=== PATIENT | male | born 1980 | race Caucasian/White ===

== ENCOUNTER 2022-07-18 10:55 | Emergency (ER) | payer OTHER ==
[2022-07-18 11:11] VITALS: BP 165/92; PULSE 80; RESP 17; TEMP 97.6; BMI 37.5
[2022-07-18] MEDS ORDERED: DIPHTH,PERTUSS(ACELL),TET 0.5 ML DISP.SYRIN IM ONE ×2 (12:21→12:23)
[2022-07-18] MEDS ORDERED: ACETAMINOPHEN 500 MG TABLET (FP) PO ONE (12:52)
[2022-07-18] MEDS ORDERED: ACETAMINOPHEN 500 MG TABLET (FP) ONE ×2 (12:55→12:56)
== END 2022-07-18 14:59 | disposition short-term general hospital (02) ==
LOC: JERFT 10:55
PROC: 3E0234Z Introduction of Serum, Toxoid and Vaccine into Muscle, Percutaneous Approach (ICD-10-PCS; principal; 2022-07-18)
DX: S92.421B Displaced fracture of distal phalanx of right great toe, initial encounter for open fracture (principal); S92.531B Displaced fracture of distal phalanx of right lesser toe(s), initial encounter for open fracture; W20.8XXA Other cause of strike by thrown, projected or falling object, initial encounter
CPT/HCPCS: 73660-TC-FY; 90715; 99285-25